=== PATIENT | female | born 1980 | race Caucasian/White ===

== ENCOUNTER 2019-06-01 | Emergency (ER) | payer SELFPAY ==
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
[2019-06-01 01:55] VITALS: BP 118/77
== END 2019-06-01 01:53 | disposition home or self-care (01) ==
LOC: ER
DX: S30.0XXA Contusion of lower back and pelvis, initial encounter (principal); S69.92XA Unspecified injury of left wrist, hand and finger(s), initial encounter; M79.644 Pain in right finger(s); M79.10 Myalgia, unspecified site; Y04.8XXA Assault by other bodily force, initial encounter
CPT/HCPCS: 72220; 99284